=== PATIENT | female | born 1985 | race African-American/Black ===

== ENCOUNTER → 2016-09-21 | Emergency (ER) | payer MEDICAID ==
[~2016-09-21] VITALS: Ht 170.2 cm; Wt 170.1 kg
[~2016-09-21] MED LIST: ALBUTEROL SULF8.5 GM INH; AZITHROMYCIN250 MG ORAL; IBUPROFEN600 MG ORAL; NKM; PREDNISONE20 MG ORAL; PROMETHAZINE-D118 ML ORAL
[2016-09-21 21:01] VITALS: BP 152/96
[2016-09-21 21:17] VITALS: BP 152/96
--- NOTE | 2016-09-23 07:03 | Emergency Room Report ---
History of Present Illness General Chief Complaint: Flu Like Symptoms Source: Patient Present Illness HPI 31-year-old female presents ED complaining of coughing. States she is having a dry cough x2 days. Denies phlegm. Denies any fevers or chills. Denies any chest pain shortness of breath. Denies sick contacts or recent travel. No other aggravating relieving factors. Denies any other associated symptoms Allergies: Coded Allergies: No Known Allergies (Unverified , 03/07/16) Patient History Past Medical History: asthma Past Surgical History: none Pertinent Family History: none Social History: Denies: alcohol use, drug use, smoking Now: No Immunizations: UTD Reviewed Nursing Documentation: PMH: Agreed, PSxH: Agreed Nursing Documentation-PMH Past Medical History: No History, Except For Hx Asthma: Yes Review of Systems All Other Systems: negative except mentioned in HPI Physical Exam Vital Signs Date Time Temp Pulse Resp B/P Pulse Ox O2 Delivery O2 Flow Rate FiO2 09/21/16 20:45 97.9 94 20 152/96 99 Room Air Sp02 EP Interpretation: reviewed, normal General Appearance: no apparent distress, alert, GCS 15, non-toxic Head: normocephalic, atraumatic Eyes: bilateral eye PERRL, bilateral eye normal inspection ENT: hearing grossly normal, normal pharynx, no angioedema, normal voice Neck: full range of motion, supple/symm/no masses Respiratory: chest non-tender, lungs clear, normal breath sounds, speaking full sentences Cardiovascular #1: regular rate, rhythm, no edema Cardiovascular #2: 2+ carotid (R), 2+ carotid (L), 2+ radial (R), 2+ radial (L) , 2+ dorsalis pedis (R), 2+ dorsalis pedis (L) Gastrointestinal: normal bowel sounds, non tender, soft, non-distended, no guarding, no rebound Rectal: deferred Genitourinary: normal inspection, no CVA tenderness Musculoskeletal: back normal, gait/station normal, normal range of motion, non- tender Neurologic: alert, oriented x3, responsive, motor strength/tone normal, sensory intact, speech normal Psychiatric: judgement/insight normal, memory normal, mood/affect normal, no suicidal/homicidal ideation Reflexes: 3+ bicep (R), 3+ bicep (L), 3+ tricep (R), 3+ tricep (L), 3+ knee (R) , 3+ knee (L) Skin: normal color, no rash, warm/dry, well hydrated Lymphatic: no adenopathy Medical Decision Making Diagnostic Impression: Primary Impression: Bronchitis ER Course Hospital Course 31-year-old female presents to ED with coughing x2 days Differential diagnoses include: URI, pharyngitis, otitis media, asthma Clinical course Patient placed on stretcher. After initial history, physical exam reveals an obese female in no acute distress. Bilateral TM unremarkable. No pharyngeal erythema. No tonsillar exudates. No lymphadenopathy. lungs clear. abdomen soft. Clinical findings consistent with bronchitis. Reassurance given to parents. treatment is supportive therapy Diagnosis - bronchitis Stable and discharged home with Rx Albuterol, prednisone, cough syrup. Instructed to followup with PMD. Return to ED if symptoms recur or worsen Last Vital Signs Date Time Temp Pulse Resp B/P Pulse Ox O2 Delivery O2 Flow Rate FiO2 09/21/16 21:17 97.9 94 20 152/96 99 Room Air Status: improved Disposition: HOME, SELF-CARE Condition: Stable Scripts D-Methorphan Hb/Prometh Hcl* (PROMETHAZINE-DM SYRUP*) 118 Ml Syrup 5 ML ORAL Q4H Y for For Cough for 5 Days, ML 0 Refills Prov: CELINE CALI M.D. 09/21/16 Albuterol Sulfate* (ALBUTEROL SULFATE MDI*) 8.5 Gm Hfa.aer.ad 2 PUFF INH Q4H Y for cough/wheezing, #1 EA 0 Refills Prov: CELINE CALI M.D. 09/21/16 Prednisone* (PREDNISONE*) 20 Mg Tablet 40 MG ORAL DAILY, #10 TAB Prov: CELINE CALI M.D. 09/21/16 Referrals: MARTI POWER,REFERRING (PCP) Patient Instructions: Acute Bronchitis CELINE CALI M.D. Sep 23, 2016 07:03
== END | disposition home or self-care (01) ==
LOC: EMR 21:00
DX: J40 Bronchitis, not specified as acute or chronic (principal); J45.909 Unspecified asthma, uncomplicated
CPT/HCPCS: 99282

== ENCOUNTER 2017-04-02 08:37 | Emergency (ER) | payer MEDICAID ==
[~2017-04-02] VITALS: Ht 175.3 cm; Wt 147.4 kg
[2017-04-02 08:57] VITALS: BP 113/70
[2017-04-02] MEDS ORDERED: Tetanus/Diptheria/Pertussis Vaccine 0.5ml Syr IM ONE (09:15)
[2017-04-02] MEDS ORDERED: IBUPROFEN600 MG ORAL (10:47)
[2017-04-02] MEDS ORDERED: AUGMENTIN 875-1 EAC1 ORAL (10:47)
[2017-04-02 11:05] VITALS: BP 111/84
--- NOTE | 2017-04-02 11:50 | Diagnostic Imaging Report ---
Indication: PAIN Technique: 3 views left foot Comparison: None Findings: No acute fractures. No dislocations. The joint spaces are preserved Impression: Negative
--- NOTE | 2017-04-02 15:06 | Emergency Room Report ---
History of Present Illness General Chief Complaint: Puncture Wound Source: Patient Present Illness HPI 31-year-old female presents ED for evaluation. Patient states that today she stepped on broken piece of plastic which may have embedded in her foot. Patient states she feels something inside her foot. Pain is a 3 and a 10, throbbing, nonradiating, worse with walking. Tetanus unknown. Denies any other injuries. No other aggravating or leading factors. Denies any other associated symptoms Allergies: Coded Allergies: No Known Allergies (Unverified , 03/07/16) Patient History Past Medical History: none Past Surgical History: none Pertinent Family History: none Social History: Denies: alcohol use, drug use, smoking Now: No Immunizations: UTD Reviewed Nursing Documentation: PMH: Agreed, PSxH: Agreed Nursing Documentation-PMH Past Medical History: No Stated History Hx Asthma: Yes Review of Systems All Other Systems: negative except mentioned in HPI Physical Exam Vital Signs Date Time Temp Pulse Resp B/P Pulse Ox O2 Delivery O2 Flow Rate FiO2 04/02/17 08:50 98.1 86 16 113/70 98 04/02/17 11:05 Room Air Sp02 EP Interpretation: reviewed, normal General Appearance: obese Head: normocephalic Eyes: bilateral eye PERRL, bilateral eye normal inspection ENT: normal ENT inspection Neck: normal inspection Respiratory: normal inspection Cardiovascular #1: normal inspection Gastrointestinal: normal inspection Genitourinary: normal inspection Musculoskeletal: normal inspection Neurologic: alert, oriented x3, responsive, motor strength/tone normal, sensory intact, speech normal Psychiatric: judgement/insight normal, memory normal, mood/affect normal, no suicidal/homicidal ideation Skin: other - small laceration to bottom of L foot. no foreign body palpated Lymphatic: normal inspection Procedures Additional Procedure Procedure Narrative Foreign body removal Patient placed on stretcher. Bottom of the foot is anesthetized using lidocaine In sterile fashion I made an incision to the bottom of the foot at the site of foreign body insertion. I did local wound exploration using forceps and did not identify any foreign body. Wound is irrigated, dressing applied. Patient tolerated procedure without any complication Medical Decision Making Diagnostic Impression: Primary Impression: Foreign body in foot Qualified Codes: S90.852A - Superficial foreign body, left foot, initial encounter ER Course Hospital Course 31 year-old female presents ED complaining of plastic piece stuck in her left foot Differential diagnoses include: foreign body, infection, puncture wound Clinical course Patient placed on stretcher. After initial history and physical, I ordered tetanus and Xrays of L foot Xrays prelim read shows no evidence of foreign body. I performed local wound exploration using lidocaine. I did not identify any evidence of foreign body reassurance given to the patient. Wound is irrigated and dressed applied. We will prescribe antibiotics Diagnosis -foreign body in foot Stable and discharged to home with prescription for augmentin. weight bear as tolerated. Followup with PMD. Return to ED if symptoms recur or worsen Other X-Ray Diagnostic Results Other X-Ray Diagnostic Results : X-Ray ordered: left foot # of Views/Limited Vs Complete: 3 View Indication: Pain EP Interpretation: Yes Interpretation: no dislocation, no soft tissue swelling, no fractures Impression: No acute disease Interpreting ER Provider: Electronically signed by Sunday Munoz MD Last Vital Signs Date Time Temp Pulse Resp B/P Pulse Ox O2 Delivery O2 Flow Rate FiO2 04/02/17 11:05 81 16 111/84 99 Room Air 04/02/17 08:57 98.1 Status: improved Disposition: HOME, SELF-CARE Condition: Stable Scripts Amoxicillin/Potassium Clav 875-125* (AUGMENTIN 875-125 TABLET*) 1 Each Tablet 1 TAB ORAL TWICE A DAY, #14 TAB Prov: SUNDAY MUNOZ M.D. 04/02/17 Ibuprofen* (MOTRIN*) 600 Mg Tablet 600 MG ORAL Q8H Y for For Pain, #30 TAB 0 Refills Prov: SUNDAY MUNOZ M.D. 04/02/17 Patient Instructions: Puncture Wound SUNDAY MUNOZ M.D. Apr 02, 2017 15:06
== END 2017-04-02 11:06 | disposition home or self-care (01) ==
LOC: EMR 09:16
DX: S91.322A Laceration with foreign body, left foot, initial encounter (principal); W22.8XXA Striking against or struck by other objects, initial encounter; Y92.89 Other specified places as the place of occurrence of the external cause; Z23 Encounter for immunization; J45.909 Unspecified asthma, uncomplicated
CPT/HCPCS: 90471; 90715; 96372; 99284

== ENCOUNTER → 2019-10-27 | Emergency (ER) | payer MEDICAID, OTHER ==
[~2019-10-27] VITALS: Ht 170.2 cm; Wt 155.1 kg
[~2019-10-27] MED LIST changes: +AUGMENTIN 875-1 EAC1 ORAL; +MUCINEX1200 MG PO; +TYLENOL EXTRA500 MG ORAL
[2019-10-27 12:48] VITALS: BP 120/88
--- NOTE | 2019-10-27 12:49 | NUR ---
ED Nurse Note: pt ambulated to ed d/t flu-like symptoms and sore throat x 4 days. VSS, latest temp on triage was 98.2; NAD. Placed on bed, awaiting for ERPA.
--- NOTE | 2019-10-27 13:39 | Emergency Room Report ---
History of Present Illness General Chief Complaint: Flu Like Symptoms Source: Patient Present Illness HPI 34-year-old female presents to the emergency department complaining of productive cough x5 days. Patient reports fevers and chills as well. She reports generalized body aches and fatigue. She states she did not receive this years flu vaccine. Patient denies recent travel. She reports that her son had similar symptoms prior to onset of hers. Patient denies sore throat. Patient reports history of asthma she denies history of smoking or COPD. Patient denies any aggravating or relieving factors at this time. She also is reporting decrease in appetite. Allergies: Coded Allergies: No Known Allergies (Unverified , 03/07/16) Patient History Past Medical History: see triage record Past Surgical History: none Pertinent Family History: none Last Menstrual Period: now Now: No Reviewed Nursing Documentation: PMH: Agreed; PSxH: Agreed Nursing Documentation-PMH Hx Asthma: Yes Review of Systems All Other Systems: negative except mentioned in HPI Physical Exam Vital Signs Date Time Temp Pulse Resp B/P (MAP) Pulse Ox O2 Delivery O2 Flow Rate FiO2 10/27/19 12:42 98.4 107 20 120/88 (99) 100 Room Air Sp02 EP Interpretation: reviewed, normal General Appearance: no apparent distress, alert, GCS 15, non-toxic Head: normocephalic, atraumatic Eyes: bilateral eye normal inspection, bilateral eye PERRL ENT: hearing grossly normal, normal pharynx, normal voice, TMs + canals normal , uvula midline, nasal congestion Neck: full range of motion Respiratory: chest non-tender, normal breath sounds, speaking full sentences, wheezing - Scant expiratory wheezes Cardiovascular #1: regular rate, rhythm, no edema, normal capillary refill Musculoskeletal: normal range of motion, gait/station normal, non-tender Neurologic: alert, motor strength/tone normal, oriented x3, sensory intact, responsive, speech normal Psychiatric: judgement/insight normal Skin: no rash, normal color Lymphatic: no adenopathy Medical Decision Making PA Attestation Dr. Fonseca Is my supervising Physician whom patient management has been discussed with. Diagnostic Impression: Primary Impression: Bronchitis ER Course 34-year-old female presents to the emergency department complaining of productive cough x5 days. Patient reports fevers and chills as well. She reports generalized body aches and fatigue. She states she did not receive this years flu vaccine. Patient denies recent travel. She reports that her son had similar symptoms prior to onset of hers. Patient denies sore throat. Patient reports history of asthma she denies history of smoking or COPD. Patient denies any aggravating or relieving factors at this time. She also is reporting decrease in appetite. Ddx considered but are not limited to URI, pneumonia, PE, strep pharyngitis, meningitis. Vital signs: Pt.is afebrile VS are WNL H&PE are most consistent with bronchitis ORDERS: none required at this time, the diagnosis is clinical ED INTERVENTIONS: None required at this time. DISCHARGE: At this time pt. is stable for d/c to home. Will provide printed patient care instructions, and any necessary prescriptions. Care plan and follow up instructions have been discussed with the patient prior to discharge. Last Vital Signs Date Time Temp Pulse Resp B/P (MAP) Pulse Ox O2 Delivery O2 Flow Rate FiO2 10/27/19 12:48 107 20 Room Air 10/27/19 12:48 98.4 120/88 100 Disposition: HOME, SELF-CARE Condition: Stable Departure Forms: Return to Work Return to Work Date: Oct 30, 2019 Work Restrictions: None Other Restrictions: please excuse from wednesday10/24/19. Return to Full Activity: Oct 30, 2019 Patient Instructions: Acute Bronchitis, [place], Cough, Adult, Easy-to- Read Additional Instructions: Take medications as directed. Follow up with a Primary Care Provider in 3-5 days, even if your symptoms have resolved. Return sooner to ED if new symptoms occur, or current symptoms become worse. - Please note that this Emergency Department Report was dictated using [employer] machine operator technology software, occasionally this can lead to erroneous entry secondary to interpretation by the dictation equipment. Jessie Champion Oct 27, 2019 13:39
[2019-10-27 13:48] VITALS: BP 120/88
--- NOTE | 2019-10-27 13:48 | NUR ---
ER DISCHARGE NOTE: Patient is cleared to be discharged per ERMD, pt is aox4, on room air, with stable vital signs. pt was given dc and prescription instructions, pt was able to verbalize understanding, pt id band removed. pt is able to ambulate with steady gait. pt took all belongings.
== END | disposition home or self-care (01) ==
LOC: EMR 13:15
DX: J40 Bronchitis, not specified as acute or chronic (principal)
CPT/HCPCS: 99281